=== PATIENT | female | born 1960 | race Caucasian/White ===

== ENCOUNTER 2024-11-19 11:25 | Outpatient (AMB) | payer BC, SELFPAY ==
[2024-11-19 11:52] VITALS: BP 137/81; PULSE 80; RESP 16; TEMP 36.8; O2SAT 96
--- NOTE | 2024-11-19 11:52 | GYNCLNT_ITS ---
Vital Signs 11/19/24 11:52 Height 1.73 m Height Method Stated Weight 59.591 kg Weight Measurement Method Standing Scale BMI 20.0 BP 137/81 H Blood Pressure Source Automatic Cuff Blood Pressure Location Right Upper Arm Position Sitting Respiration 16 Pulse 80 Pulse Source Monitor Temp 98.3 F Temp Source Oral Pulse Oximetry (%) 96 Oxygen Delivery Method Room Air Allergies/Home Meds Allergies & Medications Allergies No Known Allergies Allergy (Verified 11/19/24 11:53) Medication Reconciliation estradiol 10 mcg vaginal insert (Imvexxy Maintenance Pack) 10 mcg vaginal QDAY 2 weeks #8 inserts 11/20/24 [Rx] estradiol 10 mcg vaginal insert, in a starter dose pack (Imvexxy Starter Pack) See Rx Instructions vaginal .COMPLEX #18 ea 11/20/24 [Rx] rimnjyomebug-mfrozcz-wjpax acid 400 mcg-vitamin K 80 mcg tablet tab PO 11/20/24 [History] omeprazole 20 mg capsule,delayed release 20 mg PO QDAY 11/20/24 [History] Intake Visit Data Collection New Patient or Established: Established Patient (seen at [facility] within 3 years) Reason for Visit:: ANNUAL WELLNESS Seen by Clinical Staff ONLY (RN/MA): No 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 Tried Imvexxy with some success. Not sexually active due to severe discomfort. 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 Both surgeries done with Dr. Ansari in the [facility] Chemo/ XRT of Vagina 1983 and 1988 CS x [address] Alba Solomon Other Relevant History: Admitted recently [facility] for a SBO treated with Gastrografin fall for 3-4 days Questionnaires Covid-19 Vaccine Questionnaire Has patient been vacinated for Covid-19 Have you been vacinated for Covid-19: Yes PHQ-9 PHQ-2 Over the last 2 weeks, how often have you been bothered by any of the following problems? 1. Little interest or pleasure in doing things: not at all 2. Feeling down, depressed, or hopeless: not at all Total score: 0 PHQ-9 3. Trouble falling or staying asleep, or sleeping too much: Not at all 4. Feeling tired or having little energy: Not at all 5. Poor appetite or overeating: Not at all 6. Feeling bad about yourself - or that you are a failure or have let yourself or your family down: Not at all 7. Trouble concentrating on things, such as reading the newspaper or watching television: Not at all 8. Moving or speaking so slowly that other people could have noticed? - Or the opposite - being so fidgety or restless that you have been moving around a lot more than usual: not at all 9. Thoughts that you would be better off or of hurting yourself in some way: Not at all Total score: 0 Source: Developed by Drs. Eduardo Gilmore, Lucy Mg, Luan Santos and colleagues, with an educational meek from [employer]. Depression screen completed yes Social History Living Situation History Marital Status: Lives With: Family Housing: House Housing Other:: has a daughter 42, two sons 41 and 36 . 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 She has a history of uterine Ca and had a hysterectomy/BSO with Dr Huong Ansari in the [facility] in 2017. She had a recurrence in 2018 and underwent an XLAP/bebulking and chemo/XRT in 2018. I don't know the stage,grade or type of uterine CA. She is in menopause and her only complaint is urge incontinence and an inability to have intercourse secondary to a severe foreshortened vagina from XRT. IMVEXXY did help and we have tried this in the past. She would like a refill. DR Gudino in [place] is her primary care and the patient has had a mammo in , a bone density in 09/25 a colonoscopy in 2016 and has one upcoming with Dr Ramsay. Dr Gudino even ordered a CA 125 that is WNL per pt. She was admitted with GB pain and abdominal pain in the fall of 2023 in [place]. She was diagnosed with a SBO and this was treated with gastrograffin, She was admitted x [address] Willis took her GB out a couple of months later as an outpatient. Review of Systems Review of Systems Narrative Review of Systems: + Urge incontinence + vaginal dryness Exam General General Appearance: alert, in no apparent distress, comfortable, cooperative, well groomed and other (Appears tired) ENT ENT exam: Present normal exam, normal oropharynx and mucous membranes moist Neck Neck exam: Present normal inspection, full ROM and trachea midline Chest Chest inspection: Present normal inspection and symmetric chest wall rise Resp Respiratory exam: Present normal lung sounds bilaterally Card Cardiovascular exam: Present regular rate, normal rhythm and normal heart sounds Abdominal Abdominal exam: Present soft, normal bowel sounds and scar (From CS, GB and vertical scar from XLAP) External exam: Present normal external exam and other (Severe atrophic vaginitis) Speculum exam: Present other (Foreshorted vagina, narrow canal) Bimanual exam: Present other (Done with one finger. Very narrow vagina.Cx/uterus/ adnexa surgically absent. No masses) Psych Psychiatric exam: Present normal affect and normal mood Skin Skin exam: Present warm, dry, intact and normal color Office Procedures OB Clinic LOC & Office Proc's Nursing/Assessment Patient Status: Initial/New Patient OB Clinic Nursing Assessment: Medication Reconciliation, Update PMH in EMR and Vital Signs OB Clinic Coordination of Care: Complex Care and Chronic Disease 1-5, Consent,records obtained, informed consent, Education Simp Pt/Fam, Lab and Imaging orders, Results/Orders obtained and Staff clarify orders Miscellaneous Interventions: Breast Exam and Pelvic no cultures New Patient Charge New Patient Point Assignment: [id number] 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 Breast exam done and encouraged. Mammo WNL per pt in 09/25. Release medical records (2) Uterine corpus cancer: Status: Acute Qualifiers: Malignant neoplasm of body of uterus location: unspecified location Qualified Code(s): C54.9 - Malignant neoplasm of corpus uteri, unspecified Assessment and Plan: Hx reccurence and XRT/Chemo (3) Post-menopausal atrophic vaginitis: Status: Acute Assessment and Plan: IMVEXXY prescribed,Trial of vaginal estrogen to urethra. If not effective, will try detrol or another medication. (4) Urge incontinence: Status: Acute GEOGRAPHY HEAD: Papsmear Pap Smear Procedure Chaparone in room during procedure?: No Pre-op diagnosis general: annual/hx uterine CA and XRT to vagina Post-op diagnosis procedure note: Same Procedure Notes:: Pap with HPV done of cuff Papsmear completed: yes
== END 2024-11-19 12:06 | disposition home or self-care (01) ==
LOC: HODSOBC 11:25
PROVIDERS: Supervising Provider Obstetrics & Gynecology; Visit Provider Obstetrics & Gynecology
DX: Z01.411 Encounter for gynecological examination (general) (routine) with abnormal findings (principal); Z11.51 Encounter for screening for human papillomavirus (HPV); N95.2 Postmenopausal atrophic vaginitis; N39.41 Urge incontinence; Z92.3 Personal history of irradiation; Z92.21 Personal history of antineoplastic chemotherapy; Z85.42 Personal history of malignant neoplasm of other parts of uterus; Z90.710 Acquired absence of both cervix and uterus; Z90.79 Acquired absence of other genital organ(s); Z90.722 Acquired absence of ovaries, bilateral
CPT/HCPCS: 99204; Q0091; G0463